=== PATIENT | female | born 1995 | race African-American/Black ===

== ENCOUNTER 2018-01-29 07:56 | Emergency (ER) | payer SELFPAY ==
[~2018-01-29] VITALS: Ht 180.3 cm; Wt 76.0 kg
[2018-01-29] MEDS ORDERED: ALBU18HF INH (08:21)
[2018-01-29] MEDS ORDERED: METOCLOPRAMIDE 5 MG/ML, 2ML ONE (08:23)
[2018-01-29] MEDS ORDERED: DIPHENHYDRAMINE 50 MG/ML, 1ML ONE (08:23)
[2018-01-29] MEDS ORDERED: METOCLOPRAMIDE 5 MG/ML, 2ML IVPush ONE (08:30)
[2018-01-29] MEDS ORDERED: SODIUM CHLORIDE FLUSH 10ML SYR IVF ONE (08:30)
[2018-01-29] MEDS ORDERED: DIPHENHYDRAMINE 50 MG/ML, 1ML IVPush ONE (08:30)
[2018-01-29] MEDS ORDERED: KETOROLAC 30 MG/1 ML IVPush ONE ×2 (09:30)
[2018-01-29] MEDS ORDERED: KETOROLAC 30 MG/1 ML ONE (09:38)
[2018-01-29 09:44] VITALS: BP 128/79
== END 2018-01-29 10:09 | disposition home or self-care (01) ==
LOC: ED 09:11
DX: R51 Headache (principal); R11.0 Nausea
CPT/HCPCS: 70450; 96374; 96375; 99284; J1200; J1885; J2765